=== PATIENT | female | born 2000 | race Caucasian/White ===

== ENCOUNTER 2024-01-02 19:16 | Emergency (ER) | payer MEDICAID | END 2024-01-02 22:40 | disposition left against medical advice (07) | LOC: ER 19:16 | DX: R51.9 Headache, unspecified (principal); Z53.21 Procedure and treatment not carried out due to patient leaving prior to being seen by health care provider ==

== ENCOUNTER 2024-12-20 23:17 | Emergency (ER) | payer MEDICAID ==
[~2024-12-20] VITALS: Ht 157.5 cm; Wt 79.0 kg
[2024-12-21 00:13] VITALS: O2SAT 99
[2024-12-21] MEDS ORDERED: LIDOCAINE HCL/PF 1% 10 MG/ML 5ML VIAL INFIL ONE (00:15)
[2024-12-21] MEDS: LORAZEPAM 0.5MG TABLET PO ONE (00:15)
[2024-12-21] MEDS ORDERED: AMOXICILLIN/POTASSIUM CLAVULANATE 875/125MG TAB PO ONE (00:15)
[2024-12-21] MEDS ORDERED: BACITRACIN ZINC OINT UDPKT TOP ONE (00:15)
[2024-12-21] MEDS ORDERED: TETANUS, DIPHTHERIA, PERTUSSIS VAC/PF 0.5ML (>10YR OLD) IM ONE (00:15)
[2024-12-21] MEDS: LIDOCAINE HCL/PF 1% 10 MG/ML 5ML VIAL INFIL NR (04:00)
[2024-12-21] MEDS: BACITRACIN ZINC OINT UDPKT TOP NR (04:00)
[2024-12-21] MEDS ORDERED: BO1 TP (04:01)
[2024-12-21] MEDS ORDERED: AMOX1TAB16 MT (04:01)
[2024-12-21] MEDS: AMOXICILLIN/POTASSIUM CLAVULANATE 875/125MG TAB PO NR (04:04)
[2024-12-21] MEDS: TETANUS, DIPHTHERIA, PERTUSSIS VAC/PF 0.5ML (>10YR OLD) IM ONE (04:05)
[2024-12-21 04:26] VITALS: BP 138/76; PULSE 101; RESP 18; TEMP 37.1; O2SAT 99
== END 2024-12-21 04:27 | disposition home or self-care (01) ==
LOC: ER 23:26
DX: S01.01XA Laceration without foreign body of scalp, initial encounter (principal); F41.0 Panic disorder [episodic paroxysmal anxiety]; R51.9 Headache, unspecified; Y04.1XXA Assault by human bite, initial encounter; Y93.89 Activity, other specified; Y92.89 Other specified places as the place of occurrence of the external cause; Y99.8 Other external cause status
CPT/HCPCS: 12002; 90471; 90715; 96372; 99284; 99285

== ENCOUNTER 2024-12-23 16:46 | Emergency (ER) | payer MEDICAID ==
[~2024-12-23] VITALS: Ht 160 cm; Wt 79.0 kg
[~2024-12-23 16:46] MED LIST: AMOX1TAB16 MT; BO1 TP
[2024-12-23 16:50] VITALS: BP 127/71; PULSE 83; RESP 18; TEMP 37.1; O2SAT 99
== END 2024-12-23 17:15 | disposition left against medical advice (07) ==
LOC: ER 16:46
DX: F41.9 Anxiety disorder, unspecified (principal); Z53.21 Procedure and treatment not carried out due to patient leaving prior to being seen by health care provider

== ENCOUNTER 2024-12-31 13:17 | Emergency (ER) | payer MEDICAID ==
[~2024-12-31] VITALS: Ht 160 cm; Wt 78.5 kg
[2024-12-31 13:20] VITALS: BP 117/83; PULSE 92; RESP 16; TEMP 37.1; O2SAT 98
== END 2024-12-31 14:30 | disposition home or self-care (01) ==
LOC: ER 13:17
DX: S01.01XD Laceration without foreign body of scalp, subsequent encounter (principal); Z98.890 Other specified postprocedural states; X58.XXXD Exposure to other specified factors, subsequent encounter
CPT/HCPCS: 99281; 99282

== ENCOUNTER 2025-03-30 17:18 | Emergency (ER) | payer BC, MEDICAID ==
[~2025-03-30] VITALS: Ht 157.5 cm; Wt 79.0 kg
[2025-03-30 17:24] VITALS: O2SAT 97
[2025-03-30] MEDS: BACITRACIN ZINC OINT UDPKT TOP ONE (21:12)
[2025-03-30] MEDS: LIDOCAINE HCL/PF 1% 10 MG/ML 5ML VIAL INFIL ONE (21:37)
[2025-03-30] MEDS ORDERED: BO1 TP (22:07)
[2025-03-30 22:21] VITALS: BP 121/77; PULSE 80; RESP 14; TEMP 36.9; O2SAT 100
== END 2025-03-30 22:23 | disposition home or self-care (01) ==
LOC: ER 17:18
DX: S61.511A Laceration without foreign body of right wrist, initial encounter (principal); X58.XXXA Exposure to other specified factors, initial encounter; Y93.89 Activity, other specified; Y92.89 Other specified places as the place of occurrence of the external cause; Y99.8 Other external cause status
CPT/HCPCS: 12001; 99282; J2003; Z7610